=== PATIENT | male | born 1995 | race Caucasian/White ===

== ENCOUNTER 2022-03-13 14:54 | Emergency (ER) | payer MEDICAID, SELFPAY ==
[2022-03-13 15:07] VITALS: BP 151/85; PULSE 94; RESP 14; TEMP 38.1; O2SAT 94
--- NOTE | 2022-03-13 15:19 | ED.GENADUL_ITS ---
Discharge Plan Disposition Patient Disposition: HOME Condition: Stable Discharge Details Clinical Impression: Bee sting Primary Care Provider: None,None ED Provider: Katie Gray Home Meds and New Rx's Prescriptions: New epinephrine [EpiPen] 0.3 mg/0.3 mL auto-injector 0.3 mg IM ONCE PRN (Reason: anaphylaxis) Qty: 2 0RF Rx Instructions: as a single dose; may repeat once Discharge Instructions Instructions: Insect Bite or Sting (ED) Additional Instructions: He may take Benadryl 1 or 2 tablets every 6-8 hours as needed for itching. You may also take Claritin once daily for the next 5 to 7 days. And Pepcid which she can get [id number] once daily for the next 5 to 7 days. Apply ice to the area. Please get the EpiPen prescription filled. Use it intramuscularly months as needed for facial swelling or anaphylactic reaction to bee sting if needed. You do need to call 911 or come back to the emergency department if you need to use the EpiPen. Follow up with primary care provider in 3-5 days. Return to ED sooner if any worsening or concerns. Increase oral fluids. Please take Tylenol or Ibuprofen with food every 4-6 hours as needed for pain and swelling. Discharge Data Discharge Date/Time-TO BE ENTERED AT DEPARTURE: 03/13/22 15:45 Medical Decision Making 26-year-old male presents to the ER with chief complaint of bee sting to his left ear which occurred approximately 1 hour prior to arrival. 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 He has been stung by bee since then with no reaction. He denies any shortness of breath, throat closing or throat swelling he is speaking in full sentences. He does smoke cigarettes. He does have some expiratory wheezes bilaterally at the bases which he states is normal. No evidence for acute anaphylaxis no lip swelling no facial swelling patient speaking in full sentences. Claritin, prednisone 40 mg and Pepcid 40 mg ordered p.o. Will prescribe patient EpiPen as needed for future use if anaphylaxis occurs. Patient is slightly febrile with expiratory wheezes bilaterally and then etiology for this. Patient has no complaints of cough. Patient states that he has a PCP appointment tomorrow which I encouraged him to keep. HPI General Mode of arrival: ambulatory . Date/Time Provider Initiated Documentation: 03/13/22 14:55 . Limitations to Documentation: no limitations . Information obtained by: patient, RN notes reviewed and old records reviewed . HPI Narrative: 26-year-old male presents to the ER with chief complaint of bee sting to his left ear which occurred approximately 1 hour prior to arrival. 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 He has been stung by bee since then with no reaction. He denies any shortness of breath, throat closing or throat swelling he is speaking in full sentences. He does smoke cigarettes. He does have some expiratory wheezes bilaterally at the bases which he states is normal. Related Data Home Medications Medication Instructions Recorded Confirmed epinephrine 0.3 mg/0.3 mL 0.3 mg (0.3 mL) IM ONCE PRN 03/13/22 injection, auto-injector (EpiPen) anaphylaxis #2 ea Previous Rx's Medication Instructions Recorded epinephrine 0.3 mg/0.3 mL 0.3 mg (0.3 mL) IM ONCE PRN 03/13/22 injection, auto-injector (EpiPen) anaphylaxis #2 ea General Stated Complaint: Allergic XIOMY: 4 Review of Systems All systems reviewed & are unremarkable except as noted in HPI and below Eyes Eyes: Denies itchy eyes ENT Ears, Nose, Mouth, and Throat: Denies lip swelling, Denies throat swelling and Denies tongue swelling Respiratory Respiratory: Reports wheezing Integumentary/Breasts Skin/Breast: Reports as per HPI, Reports skin pain and Reports skin swelling (Left ear) Allergic/Immunologic Allergic/Immunologic: Denies urticaria, Denies itchy eyes, Denies lip swelling, Denies seasonal rhinorrhea, Denies throat swelling, Denies tongue swelling and Reports wheezing [facility] All Active Problems (Updated 03/13/22 @ 15:31 by Katie Gray NP) Bee sting (Acute) Social History Smoking/Tobacco Use Status: Current every day Tobacco Type: cigarettes Years smoked: 12 Smoking risk assessment performed?: Yes Substance use type: does not use Do you feel safe at home: Yes Do you feel safe in your relationship?: Yes Exam Const General: cooperative, healthy appearing, comfortable, well developed, not anxious, not diaphoretic, not ill appearing, does not appear intoxicated and well hydrated Nutritional Appearance: average body habitus and well nourished Orientation: alert, awake and oriented x3 HENMT Head: normal to inspection Ears: TM's normal bilaterally and other (Left external ear erythemic slightly swollen no embedded stinger noted) General nose exam: external nose normal, nares normal and nasal mucous membranes and turbinates normal Face and sinus: normal facial exam and no edema Mouth: oral mucosae normal, lip normal, tongue normal, oropharynx normal, moist mucous membranes, no drooling, no muffled voice and no trismus Resp Effort & Inspection: normal respiratory effort, able to speak in complete sentences, no cough, no grunting, not labored, no tripod positioning and no use of accessory muscles Auscultation: wheezes expiratory wheezes and lower bilaterally Cardio Rate: regular rate Rhythm: regular rhythm Heart Sounds: S1 normal and S2 normal Course Vital Signs Vital signs: Vital Signs Temperature 38.1 C H 03/13/22 15:07 Pulse 94 H 03/13/22 15:07 Respiratory Rate 14 03/13/22 15:07 Blood Pressure 151/85 H 03/13/22 15:07 Pulse Oximetry 94 03/13/22 15:07 Temperature 38.1 C H 03/13/22 15:07 Temperature Source Oral 03/13/22 15:07 Pulse 94 H 03/13/22 15:07 Respiratory Rate 14 03/13/22 15:07 Blood Pressure 151/85 H 03/13/22 15:07 Blood Pressure Position Supine 03/13/22 15:07 Pulse Oximetry 94 03/13/22 15:07 Oxygen Delivery Method Room Air 03/13/22 15:07 Oxygen Flow Rate 0 03/13/22 15:07
[2022-03-13] MEDS: predniSONE 20 MG TAB 40 MG PO (15:33)
[2022-03-13] MEDS: Famotidine 20 MG TAB 40 MG PO (15:33)
[2022-03-13] MEDS: Loratidine 10 MG TAB PO (15:34)
[2022-03-13 15:38] VITALS: TEMP 38.3
[2022-03-13 15:45] VITALS: TEMP 38.3
== END 2022-03-13 15:45 | disposition home or self-care (01) ==
PROVIDERS: Emergency Provider Registered Nurse Emergency
DX: T63.441A Toxic effect of venom of bees, accidental (unintentional), initial encounter (principal); F17.210 Nicotine dependence, cigarettes, uncomplicated
CPT/HCPCS: 99283; 99284; J7512